=== PATIENT | male | born 1950 | race Caucasian/White ===

== ENCOUNTER 2018-12-16 07:00 | Outpatient (CLI) | payer MEDICARE, SELFPAY ==
[2018-12-16 08:03] LABS: HCT 39.3 % (40.0-50.0); HGB 13.2 g/dL (13.5-17.5)
[2018-12-16 08:28] LABS: Glucose 101 mg/dL (70-100)
== END 2018-12-16 07:20 ==
PROVIDERS: PCP General Practice; Visit Provider General Practice
DX: R73.03 Prediabetes (principal)
CPT/HCPCS: 36415; 82947; 85014; 85018

== ENCOUNTER → 2019-01-06 12:46 | Outpatient (BNVA) | payer MEDICARE, SELFPAY | PROVIDERS: PCP General Practice; Referring Provider General Practice; Visit Provider Surgery | DX: K92.2 Gastrointestinal hemorrhage, unspecified (principal); D64.9 Anemia, unspecified; Z79.1 Long term (current) use of non-steroidal anti-inflammatories (NSAID); K92.1 Melena | CPT/HCPCS: 99212; 99214 ==

== ENCOUNTER 2019-01-31 11:58 | Day surgery (SDC) | payer MEDICARE, SELFPAY ==
[2019-01-31] MEDS: Lactated Ringers 1,000 ML 80 ML IV (12:10)
[2019-01-31 12:21] VITALS: BP 142/94; PULSE 92; RESP 18; TEMP 36.1; O2SAT 18
[2019-01-31] MEDS: Lidocaine 2% Viscous 15 ML CUP (14:40)
--- NOTE | 2019-01-31 14:45 | STOM_PTH ---
PATIENT: WENDY WORLEY LOC: [facility] U#:[id number] AGE/SX: 68/M ROOM: RE01/31/[address]: Lesly Hernandez : 1950 BED: DIS: 01/31/2019 SPEC #: [id number] RECD: 01/31/19 16:53 STATUS: HOOD REQ #: [id number] INES: 01/31/19 14:[address]: Lesly Hernandez DEPT: Surgical Specimen RECD BY: Evie Toro ENTERED: 01/31/19 16:54 SP TYPE: STOMACH OTHR DR: Terence Garcia Tissues: 1 - BIOPSY BOWEL 2 - STOMACH BIOPSY 3 - STOMACH BIOPSY 4 - ESOPHAGUS BIOPSY 5 - ESOPHAGUS BIOPSY Procedures: GROSS AND MICRO LEVEL 4 Comments: [id number]
--- NOTE | 2019-01-31 15:27 | W.PM.ENDDOP ---
Date of service: 01/31/19 Time of Service: 15:27 Endoscopy Report DATE OF PROCEDURE: 01/31/19 PRE-OP DIAGNOSIS: ANEMIA POST-OP DIAGNOSIS: other (MILD GASTRITIS ) PROCEDURE: EGD W/ BVX ce- nl SURGEON: Lesly Hernandez ANESTHESIA: GETA ESTIMATED BLOOD LOSS: 2 PATHOLOGY: other COMPLICATIONS: None DISPOSITION: same day PREP: [facility] COLONOSCOPY RETRACTION TIME: 10 MINS PROCEDURE DESCRIPTION: After informed consent was obtained the patient was take to the procedure room and placed in a supine position. Monitors were applied and a time out was done. The patients name, date of , procedure type, allergies to medications and metal in their body was reviewed. A bite block was placed and the patient was sedated. Once sedated and comfortable the gastroscope was advanced through the oropharynx which was grossly normal into the esophagus. The proximal and mid-esophagus were nl. In the distal esophagus there was nl noted. The scope was advanced into the stomach and through the pylorus into the 3rd portion of the duodenum. The duodenum was noted to be nl. Biopsies were done . The scope was retracted back into the stomach and biopsies were done to rule out H. pylori. There is mild gsatritis in fundus- bx taken. slt amount of old blood. no active bleeding. The scope was retroflexed. The cardia and fundus were noted to be normal. There small a hiatal hernia noted. The scope was retracted back into the esophagus and biopsies were done of the GE junction to rule out Avalos's. The Z line was regular. The GE junction was at 38cm. The scope was removed and scopes exchanged After informed consent was obtained the patient was taken to the procedure room and placed in a left decubitous position. Monitors were applied and a time out was done. The patients name, date of , procedure, allergies to medications and metal in their body was reviewed. The patient was then sedated. Once sedated and comfortable a rectal exam was done. External exam was normal. Internal exam revealed a normal sphincter tone and no palpable masses. prostate nl. The scope was then introduced and retrofelexed. no internal hemorrhoids were identified. The scope was then advanced to the cecum without difficulty. The TI and appendiceal orifice were identified. The prep was good. The scope was then slowly retracted over 12 minutes back into the rectum. . There are no AVMs, polyps, or diverticuli. Mucosa and vasculature appears grossly normal. The scope was removed and the patient was woken up and taken back to Same day surgery in stable condition. The patient tolerated the procedure well and there were no immediate complications. Follow up: The patient does not need any further repeat colonoscopies unless, they develop changes in bowel habits or other new gastrointestinal complaints.
--- NOTE | 2019-01-31 15:29 | W.PM.DSUDISC ---
Discharge Plan Disposition Patient Disposition: HOME Condition: Good Discharge Details Reason For Visit: stomach and colon scopes Attending Provider: Lesly Hernandez Primary Care Provider: Terence Garcia Home Meds and New Rx's Prescriptions: New famotidine [Pepcid] 40 mg tablet 40 mg PO DAILY Qty: 30 RF: 11 Continued multivitamin [Daily Multi-Vitamin] 1 EACH tablet 1 tab DAILY RF: 0 simvastatin 20 MG tablet 20 mg DAILY RF: 0 Discontinued Suprep Bowel Prep Kit 17.5-3.13-1.6 gram Recon Soln RF: 0 Discharge Instructions Additional Instructions: Findings: gastritis NO: ETOH/NSAID's/ASA for 2 wks. minimal caffeine intact for 2 wks. colon = nl today Follow up: Please call if you develop: fevers >101.5 Nausea or Vomiting Abdominal pain that is not transient DAY SURGERY UNIT POST COLONOSCOPY INSTRUCTIONS 1. Because there will be medication in your system for the next 24 hours, you may feel a little sleepy. Your coordination will be affected. Therefore: a. Do not drive or operate dangerous equipment for 24 hours. b. Do not drink alcohol beverages for 24 hours (not even beer). c. Plan to go home and rest for the day. 2. Generally there are no restrictions on your activity after a day or so has gone by, but you may feel a bit fatigued for a few days. 3 After you arrive home you may have a light meal and return to a normal diet as you can tolerate it without feeling sick to your stomach. 4. After surgery, you may feel pain or discomfort. This should be only transient, but if it persists please contact your doctor. 5. If there are any questions regarding the findings of your procedure, please feel free to contact your doctor. 6. If you are unable to contact your doctor with a problem, contact the hospital at [phone]. 7. Continue all your regular medications unless directed otherwise. I understand the above instructions and have no questions. Signature of Patient or Responsible Adult Escort Date/Time Name of Responsible Adult Escort Signature of Nurse Date/Time Activity:: no strenuous acitivty or heavy lifting x 24 hrs Diet:: sm lt meals today Discharge Orders Discharge Orders: Discharge Order (Routine); Ordered 01/31/19 Ordered By: Lesly Hernandez DS: Diagnosis Discharge Diagnosis (1) Anemia: Status: Chronic (2) Gastritis: Status: Acute
--- NOTE | 2019-01-31 15:35 | W.PM.DSUDISC ---
Discharge Plan Disposition Patient Disposition: HOME Condition: Good Discharge Details Reason For Visit: stomach and colon scopes Attending Provider: Lesly Hernandez Primary Care Provider: Terence Garcia Home Meds and New Rx's Prescriptions: New famotidine [Pepcid] 40 mg tablet 40 mg PO DAILY Qty: 30 RF: 11 Continued multivitamin [Daily Multi-Vitamin] 1 EACH tablet 1 tab DAILY RF: 0 simvastatin 20 MG tablet 20 mg DAILY RF: 0 Discontinued Suprep Bowel Prep Kit 17.5-3.13-1.6 gram Recon Soln RF: 0 Discharge Instructions Additional Instructions: Findings: gastritis NO: ETOH/NSAID's/ASA for 2 wks. minimal caffeine intact for 2 wks. Continue with lifestyle modifications: no alcohol, tobacco products, Aspirin or NSAID's (ibuprofen, Motrin, Naprosyn, aleve, etc), soda pop/any carbonated beverages, caffeine (including tea & chocolate), and acidic foods, (tomatoes, citrus, onions, peppermints) spicy or fried/fatty foods. Do not lie down for 30 minutes after eating, and do not eat 2 hours prior to bedtime. Avoid wearing tight fitting clothing/ belts colon = nl today Follow up: Please call if you develop: fevers >101.5 Nausea or Vomiting Abdominal pain that is not transient DAY SURGERY UNIT POST COLONOSCOPY INSTRUCTIONS 1. Because there will be medication in your system for the next 24 hours, you may feel a little sleepy. Your coordination will be affected. Therefore: a. Do not drive or operate dangerous equipment for 24 hours. b. Do not drink alcohol beverages for 24 hours (not even beer). c. Plan to go home and rest for the day. 2. Generally there are no restrictions on your activity after a day or so has gone by, but you may feel a bit fatigued for a few days. 3 After you arrive home you may have a light meal and return to a normal diet as you can tolerate it without feeling sick to your stomach. 4. After surgery, you may feel pain or discomfort. This should be only transient, but if it persists please contact your doctor. 5. If there are any questions regarding the findings of your procedure, please feel free to contact your doctor. 6. If you are unable to contact your doctor with a problem, contact the hospital at [phone]. 7. Continue all your regular medications unless directed otherwise. I understand the above instructions and have no questions. Signature of Patient or Responsible Adult Escort Date/Time Name of Responsible Adult Escort Signature of Nurse Date/Time Stand Alone Forms: Colonoscopy Post Instructions, DSU Post EGD Instructions, Press Ganey (DSU) Activity:: no strenuous acitivty or heavy lifting x 24 hrs Diet:: sm lt meals today Discharge Orders Discharge Orders: Discharge Order (Routine); Ordered 01/31/19 Ordered By: Lesly Hernandez DS: Diagnosis Discharge Diagnosis (1) Anemia: Status: Chronic (2) Gastritis: Status: Acute
[2019-01-31 16:15] VITALS: BP 140/90; PULSE 88; RESP 16; TEMP 36.7; O2SAT 97
== END 2019-01-31 16:23 | disposition home or self-care (01) ==
PROVIDERS: PCP General Practice; Visit Provider Surgery
PROC: (CPT 43239; principal; 2019-01-31 12:00)
DX: D64.9 Anemia, unspecified (principal); K92.1 Melena; K31.89 Other diseases of stomach and duodenum; K21.0 Gastro-esophageal reflux disease with esophagitis; K44.9 Diaphragmatic hernia without obstruction or gangrene
CPT/HCPCS: 43239; 45378; 88305

== ENCOUNTER 2019-02-20 15:31 | Outpatient (CLI) | payer MEDICARE, SELFPAY ==
[2019-02-20 15:57] LABS: Bilirubin Negative (Negative); Blood Negative (Negative); Clarity Clear; Glucose Negative (Negative); Ketones Negative (Negative); Leukocyte Esterase Negative (Negative); Nitrite Negative (Negative); Specific Gravity 1.015 (1.005-1.025); Urobilinogen 0.2 EU/dL (Up TO 0.2)
== END 2019-02-20 15:51 ==
PROVIDERS: PCP General Practice; Visit Provider General Practice
DX: N50.819 Testicular pain, unspecified (principal)
CPT/HCPCS: 81003

== ENCOUNTER 2019-06-23 02:39 | Outpatient (CLI) | payer MEDICARE, SELFPAY ==
[2019-06-23 08:07] LABS: Glucose 91 mg/dL (70-100)
== END 2019-06-23 02:59 ==
PROVIDERS: PCP General Practice; Visit Provider General Practice
DX: R73.03 Prediabetes (principal)
CPT/HCPCS: 36415; 82947